=== PATIENT | female | born 1975 | race Native Hawaiian/Other Pacific Islander ===

== ENCOUNTER 2016-05-14 19:18 | Emergency (ER) | payer OTHER ==
[~2016-05-14] VITALS: Ht 153.7 cm; Wt 56.0 kg
[~2016-05-14 19:18] MED LIST: PERI8.6T PO; PREN1CAP7 PO; ROLLER WALKER1 MI1
[2016-05-14 19:21] VITALS: BP 119/75; PULSE 84; RESP 14; TEMP 98.1; O2SAT 99
[2016-05-14] MEDS ORDERED: SODIUM CHLOR 0.9% 1000 ML INJ 1,000 ML IV ONE (19:45)
--- NOTE | 2016-05-14 19:55 | PD ---
HPI Chief Complaint: Related Problem Time Seen by Provider: 19:55 Travel History International Travel<30 days: No Contact w/Intl Traveler<30days: No Traveled to known affect area: No History of Present Illness HPI 40-year-old G2 G1 female presents to the emergency department stating she is 4- 6 weeks . Patient states in the last 24 hours she's developed lower abdominal cramping and vaginal bleeding with passing of a few clots. Patient states she was seen 2 days ago at the [facility] in [facility], but had no issues at that time. Patient states she had a transabdominal ultrasound at that time showing no obvious . Patient denies burning with urination, back pain, fever, chills, or other constitutional symptoms. Patient states she is O+ blood type. She states bleeding comes and goes through the day today. Patient is allergic to Augmentin. PFSH Past Medical History Cancer: No Cardiovascular Problems: No Endocrine: No Genitourinary: No Immune Disorder: No Musculoskeletal: No Neurologic: No Psychiatric: No Reproductive: No Respiratory: No ?: : 1 Para: 1 Social History Alcohol Use: No Tobacco Use: No Substance Use: No Allergies-Medications (Allergen,Severity, Reaction): Coded Allergies: Augmentin (Verified Allergy, Unknown, 05/14/16) Reported Meds & Prescriptions Reported Meds & Active Scripts Active Citranatal [place] ( W/O Vit A W/ Fe Fumar) 27-1-260 Mg Cap 1 Cap PO DAILY Review of Systems Except as stated in HPI: all other systems reviewed are Neg General / Constitutional: No: Fever Eyes: No: Visual changes HENT: No: Headaches Cardiovascular: No: Chest Pain or Discomfort Respiratory: No: Shortness of Breath Gastrointestinal: No: Abdominal Pain Genitourinary: Positive: Hematuria, Pelvic Pain (see history present illness.) , Vaginal Bleeding, No: Urgency, Frequency, Dysuria, Discharge Musculoskeletal: No: Pain Skin: No Rash Neurologic: No: Weakness Psychiatric: No: Depression Endocrine: No: Polydipsia Hematologic/Lymphatic: No: Easy Bruising Physical Exam Narrative GENERAL: Patient appears anxious but in no acute distress. SKIN: Warm and dry. Normal color. Normal turgor. HEAD: Atraumatic. Normocephalic. EYES: Pupils equal and round. No scleral icterus. No injection or drainage. ENT: No nasal bleeding or discharge. Mucous membranes pink and moist. Pharynx is normal. NECK: Trachea midline. Neck is supple. CARDIOVASCULAR: Regular rate and rhythm. No murmurs gallops or rubs. RESPIRATORY: No accessory muscle use. Clear to auscultation. Breath sounds equal bilaterally. GASTROINTESTINAL: Abdomen soft, mild diffuse suprapubic tenderness, nondistended. Hepatic and splenic margins not palpable. No CVA tenderness. MUSCULOSKELETAL: Extremities without clubbing, cyanosis, or edema. No obvious deformities. NEUROLOGICAL: Awake and alert. No obvious cranial nerve deficits. Motor grossly within normal limits. Five out of 5 muscle strength in the arms and legs. Normal speech. PSYCHIATRIC: Appropriate mood and affect; insight and judgment normal. Data Data Last Documented VS Vital Signs Date Time Temp Pulse Resp B/P Pulse Ox O2 Delivery O2 Flow Rate FiO2 05/14/16 21:51 18 05/14/16 19:21 98.1 84 119/75 99 Room Air Orders Complete Blood Count With Diff (05/14/16 19:42) Basic Metabolic Panel (Bmp) (05/14/16 19:42) Beta Hcg (Quant/Titer) (05/14/16 19:42) Ed Urine Pregnancytest Poc (05/14/16 19:42) Ed Poc Ultrasound (05/14/16 ) Type And Screen (05/14/16 19:42) Sodium Chlor 0.9% 1000 Ml Inj (Ns 1000 M (05/14/16 19:45) Us Pelvis (Ques Pr/Ect)W Trans (05/14/16 20:16) Acetamin-Hydrocod 325-5 Mg ([place] 5-325 (05/14/16 20:30) Labs Laboratory Tests Test 05/14/16 20:45 White Blood Count 7.2 TH/MM3 Red Blood Count 4.21 MIL/MM3 Hemoglobin 11.1 GM/DL Hematocrit 34.1 % Mean Corpuscular Volume 80.9 FL Mean Corpuscular Hemoglobin 26.3 PG Mean Corpuscular Hemoglobin 32.5 % Concent Red Cell Distribution Width 16.2 % Platelet Count 175 TH/MM3 Mean Platelet Volume 9.0 FL Neutrophils (%) (Auto) 59.2 % Lymphocytes (%) (Auto) 32.0 % Monocytes (%) (Auto) 6.7 % Eosinophils (%) (Auto) 1.5 % Basophils (%) (Auto) 0.6 % Neutrophils # (Auto) 4.2 TH/MM3 Lymphocytes # (Auto) 2.3 TH/MM3 Monocytes # (Auto) 0.5 TH/MM3 Eosinophils # (Auto) 0.1 TH/MM3 Basophils # (Auto) 0.0 TH/MM3 CBC Comment DIFF FINAL Differential Comment Sodium Level 140 MEQ/L Potassium Level 3.2 MEQ/L Chloride Level 107 MEQ/L Carbon Dioxide Level 27.6 MEQ/L Anion Gap 5 MEQ/L Blood Urea Nitrogen 11 MG/DL Creatinine 0.63 MG/DL Estimat Glomerular Filtration 106 ML/MIN Rate Random Glucose 97 MG/DL Calcium Level 8.0 MG/DL Human Chorionic Gonadotropin, 4422 MIU/ML Quant Blood Type O POSITIVE Antibody Screen NEGATIVE MDM Medical Decision Making Medical Screen Exam Complete: Yes Emergency Medical Condition: Yes Differential Diagnosis Urinary tract infection. Vaginal Spotting in early . Threatened . Narrative Course Patient is medically stable at time of exam. Labs ordered including CBC, BMP, urinalysis, beta hCG, and urine test. Blood type and screen is ordered as well. Normal saline bolus is ordered 1. POC ultrasound is ordered for Dr. Murphy. Patient is discussed with Dr. Murphy. Labs are within normal limits. HCG is 4422. Ultrasound shows intrauterine with questionable viability per radiologist. Patient is discussed with Dr. Murphy. Urinalysis is pending. Patient has threatened . Patient is to return in 48 hours for repeat hCG, or return sooner with worsening symptoms as needed. Diagnosis Primary Impression: with early threatened Patient Instructions: General Instructions Additional Instructions: Labs are within normal limits. HCG is 4422. Ultrasound shows intrauterine with questionable viability per radiologist. Patient has threatened . Patient is to return in 48 hours for repeat hCG, or return sooner with worsening symptoms as needed. Disposition: 01 DISCHARGE HOME Condition: Stable Gorge Rangel May 14, 2016 19:55
[2016-05-14] MEDS ORDERED: ACETAMINOPHEN/HYDROcodone 325 MG/5 MG TAB PO ONE (20:30)
--- NOTE | 2016-05-14 20:31 | PD ---
Physical Exam Date Seen by Provider: May 14, 2016 Time Seen by Provider: 20:26 Narrative 40-year-old female came to the emergency room with history of vaginal bleed. She is about 6 weeks . She is A0. She went to see her SENIOR CAREGIVER 2 days ago where a transabdominal ultrasound was attempted but they were not able to visualize a fetus within the uterus. Yesterday she had blood test done for beta hCG. Patient is unaware of the results of that blood test. Since this morning the cramps and the bleeding has become a little more frequent and increased quantity. She describes the bleeding to be bright colored and more when she is urinating. She was seen by the physician assistant womens volleyball coach and I'm supervising him. I attempted a transabdominal ultrasound. Please refer to my procedure note. I was unable to visualize a fetus within the gestational sac. A transvaginal ultrasound has been ordered. Awaiting for the blood test including beta-hCG level. If the patient is carrying the nutrition will be discharged home to follow up with her OB with a diagnosis of that an . Otherwise it will be treated as a possible ectopic . Awaiting for the ultrasound to be done and resulted. Data Data Last Documented VS Orders Complete Blood Count With Diff (05/14/16 19:42) Basic Metabolic Panel (Bmp) (05/14/16 19:42) Beta Hcg (Quant/Titer) (05/14/16 19:42) Ed Urine Pregnancytest Poc (05/14/16 19:42) Ed Poc Ultrasound (05/14/16 ) Type And Screen (05/14/16 19:42) Sodium Chlor 0.9% 1000 Ml Inj (Ns 1000 M (05/14/16 19:45) Us Pelvis (Ques Pr/Ect)W Trans (05/14/16 20:16) Acetamin-Hydrocod 325-5 Mg ([place] 5-325 (05/14/16 20:30) Urinalysis - C+S If Indicated (05/14/16 23:15) Urine Culture (05/14/16 23:18) Nitrofurantoin Monohyd Macrocr (Macrobid (05/15/16 00:00) Labs MDM Supervised Visit with TREVOR: Yes Procedures Procedure Narrative Emergency Department Pelvic ultrasound was performed with patient consent. The curvilinear probe was used in the transverse and sagittal views within the suprapubic region revealing a gestational sac with no fetus visualized and unable to determine if it was intrauterine . Transvaginal ultrasound has been ordered. Awaiting for that to be done and resulted. Med/Other Pt SpecificInfo: Prescription(s) given Scripts Nitrofurantoin Monohydrate Macrocrystals (Macrobid)100 Mg Hgx857 Mg PO BID 10 Days Ref 0 Prov:Wes Murphy MD 05/14/16 Condition: Stable Wes Murphy MD May 14, 2016 20:31 Red Blood Count 4.21 MIL/MM3 Hemoglobin 11.1 GM/DL Hematocrit 34.1 % Mean Corpuscular Volume 80.9 FL Mean Corpuscular Hemoglobin 26.3 PG Mean Corpuscular Hemoglobin 32.5 % Concent Red Cell Distribution Width 16.2 % Platelet Count 175 TH/MM3 Mean Platelet Volume 9.0 FL Neutrophils (%) (Auto) 59.2 % Lymphocytes (%) (Auto) 32.0 % Monocytes (%) (Auto) 6.7 % Eosinophils (%) (Auto) 1.5 % Basophils (%) (Auto) 0.6 % Neutrophils # (Auto) 4.2 TH/MM3 Lymphocytes # (Auto) 2.3 TH/MM3 Monocytes # (Auto) 0.5 TH/MM3 Eosinophils # (Auto) 0.1 TH/MM3 Basophils # (Auto) 0.0 TH/MM3 CBC Comment DIFF FINAL Differential Comment Sodium Level 140 MEQ/L Potassium Level 3.2 MEQ/L Chloride Level 107 MEQ/L Carbon Dioxide Level 27.6 MEQ/L Anion Gap 5 MEQ/L Blood Urea Nitrogen 11 MG/DL Creatinine 0.63 MG/DL Estimat Glomerular Filtration 106 ML/MIN Rate Random Glucose 97 MG/DL Calcium Level 8.0 MG/DL Human Chorionic Gonadotropin, 4422 MIU/ML Quant Blood Type O POSITIVE Antibody Screen NEGATIVE Urine Color YELLOW Urine Turbidity CLEAR Urine pH 5.5 Urine Specific [place] 1.015 Urine Protein TRACE mg/dL Urine Glucose (UA) NEG mg/dL Urine Ketones 10 mg/dL Urine Occult Blood LARGE Urine Nitrite NEG Urine Bilirubin NEG Urine Urobilinogen LESS THAN 2.0 MG/DL Urine Leukocyte Esterase MOD Urine RBC /hpf Urine WBC 20 /hpf Urine Mucus FEW /lpf Microscopic Urinalysis Comment CULTURE INDICATED MDM Supervised Visit with TREVOR: Yes Procedures Procedure Narrative Emergency Department Pelvic ultrasound was performed with patient consent. The curvilinear probe was used in the transverse and sagittal views within the suprapubic region revealing a gestational sac with no fetus visualized and unable to determine if it was intrauterine . Cramps vaginal ultrasound has been ordered. Awaiting for that to be done and resulted. Med/Other Pt SpecificInfo: Prescription(s) given Scripts Nitrofurantoin Monohydrate Macrocrystals (Macrobid)100 Mg Yly547 Mg PO BID 10 Days Ref 0 Prov:Wes Murphy MD 05/14/16 Condition: Stable Wes Murphy MD May 14, 2016 20:31
[2016-05-14 21:56] LABS: AUTOMATED NEUTROPHIL # 4.2 TH/MM3 (1.8-7.7); BASOPHIL % 0.6 % (0.0-2.0); EOSINOPHIL # 0.1 TH/MM3 (0-0.4); EOSINOPHIL % 1.5 % (0.0-4.0); HEMATOCRIT 34.1 % (35.0-46.0); HEMO FLAGS DIFF FINAL; LYMPHOCYTE # 2.3 TH/MM3 (1.0-4.8); MEAN CELL VOLUME 80.9 FL (80.0-100.0); MEAN CORPUSCULAR HEMOGLOBIN 26.3 PG (27.0-34.0); MEAN CORPUSCULAR HGB CONC 32.5 % (32.0-36.0); MONO % 6.7 % (0.0-8.0); NEUT % 59.2 % (16.0-70.0); PLATELET COUNT 175 TH/MM3 (150-450); RED BLOOD COUNT 4.21 MIL/MM3 (4.00-5.30); RED CELL DISTRIBUTION WIDTH 16.2 % (11.6-17.2); WHITE BLOOD COUNT 7.2 TH/MM3 (4.0-11.0)
[2016-05-14 22:20] LABS: BICARBONATE 27.6 MEQ/L (21.0-32.0); POTASSIUM 3.2 MEQ/L (3.5-5.1)
--- NOTE | 2016-05-14 23:00 | RADRPT ---
EXAM DATE/TIME: 05/14/2016 21:24 [facility] COMPARISON: No previous studies available for comparison. INDICATIONS : Vaginal bleeding with . LAB(S): Beta-hC MEDICAL HISTORY : . Pelvic pain. Vaginal bleeding with . SURGICAL HISTORY : Right knee surgery. ENCOUNTER: Initial ACUITY: 1 day PAIN SCORE: 5/10 LOCATION: Bilateral pelvis MEASUREMENTS: UTERUS: 9.3 x 6.4 x 5.6 cm ENDOMETRIAL STRIPE: >20 mm RIGHT OVARY: 2.7 x 2.3 x 1.2 cm LEFT OVARY: 2.6 x 2.2 x 1.4 cm FREE FLUID: No CROWN RUMP LENGTH: 0.5 cm = 6 WKS 1 DAYS FHR: Non visualized. BPM FINDINGS: There is an intrauterine with gestational sac measurements characteristic of a gestational age of 6 weeks and one day. Yolk sac is present. There is a pole with measurements also charact eristic of a gestational age of 6 weeks and one day. However, no heart rate identified. There are 2 complex areas within the uterus measuring up to 1.7 x 1.1 cm and 1.1 x 0.8 cm most charac teristic of subchorionic hemorrhages. Suspected microcalcifications present in the right ovary. Exophytic cyst left ovary measuring up to 1 .7 x 1.5 cm. CONCLUSION: 1. Intrauterine present with gestational sac and crown-rump length measurements characteris tic of a six-week one-day . However, viability cannot be confirmed as no heart rate ca n be detected. 2. Subchorionic hemorrhages in the uterus measuring up to 1.7 cm and 1.1 cm in maximal diameter. 3. Mildly complex exophytic 1.7 cm left ovarian cyst. Terrell Arce MD on May 14, 2016 at 22:53 Board Certified Radiologist. This report was verified electronically.
[2016-05-14 23:37] VITALS: BP 117/68; PULSE 68; RESP 18; O2SAT 97
[2016-05-14 23:38] LABS: BLOOD, URINE LARGE (NEG); COMMENT (UR) CULTURE INDICATED; CULTURE IF INDICATED CULTURE INDICATED; GLUCOSE,URINE NEG (NEG); KETONE, URINE 10 mg/dL (NEG); MUCUS URINE FEW /lpf (OCC); NITRITE,URINE NEG (NEG); PH, URINE 5.5 (5.0-8.5); URINE COLOR YELLOW (YELLW/STRAW)
[2016-05-14] MEDS ORDERED: MACR100C2 PO (23:55)
[2016-05-15] MEDS ORDERED: NITROFURANTOIN MONOHYD MACROCR 100 MG CAP PO ONE
== END 2016-05-15 00:47 | disposition home or self-care (01) ==
LOC: NEPE 19:18
DX: O20.0 Threatened abortion (principal); N93.9 Abnormal uterine and vaginal bleeding, unspecified; R10.9 Unspecified abdominal pain; Z3A.01 Less than 8 weeks gestation of pregnancy
CPT/HCPCS: 76700; 76817; 80048; 81001; 84702; 84703; 85025; 86850; 86900; 86901; 87086; 96360; 99284; J7030

== ENCOUNTER 2016-05-15 00:44 | Emergency (ER) | payer OTHER ==
[~2016-05-15 00:44] MED LIST changes: +MACR100C2 PO; -PERI8.6T PO; -ROLLER WALKER1 MI1
[2016-05-15 00:47] VITALS: BP 113/67; PULSE 83; RESP 14; TEMP 98.1; O2SAT 97
[2016-05-15] MEDS ORDERED: SODIUM CHLOR 0.9% 1000 ML INJ 1,000 ML IV ONE (01:15)
[2016-05-15 01:53] LABS: AUTOMATED NEUTROPHIL # 3.9 TH/MM3 (1.8-7.7); BASOPHIL % 0.6 % (0.0-2.0); EOSINOPHIL # 0.1 TH/MM3 (0-0.4); EOSINOPHIL % 1.4 % (0.0-4.0); HEMATOCRIT 35.7 % (35.0-46.0); HEMO FLAGS DIFF FINAL; LYMPH % 37.8 % (9.0-44.0); LYMPHOCYTE # 2.7 TH/MM3 (1.0-4.8); MEAN CELL VOLUME 80.1 FL (80.0-100.0); MEAN CORPUSCULAR HEMOGLOBIN 26.1 PG (27.0-34.0); MEAN CORPUSCULAR HGB CONC 32.6 % (32.0-36.0); MONO % 5.8 % (0.0-8.0); NEUT % 54.4 % (16.0-70.0); PLATELET COUNT 191 TH/MM3 (150-450); RED BLOOD COUNT 4.46 MIL/MM3 (4.00-5.30); RED CELL DISTRIBUTION WIDTH 16.2 % (11.6-17.2); WHITE BLOOD COUNT 7.2 TH/MM3 (4.0-11.0)
--- NOTE | 2016-05-15 02:34 | PD ---
HPI Chief Complaint: Related Problem Time Seen by Provider: 01:14 Travel History International Travel<30 days: No Contact w/Intl Traveler<30days: No Traveled to known affect area: No History of Present Illness HPI 40-year-old female came to the emergency room for vaginal bleeding. Patient was seen and discharged from the ER less than 1 hour ago. She was seen by the PA and I will supervising him at that time. Patient was about 6 weeks and had been bleeding/spotting for past 2-3 days. She was evaluated and determined to be having a threatened . She also had UTI and the prescription was given for that. She was given a dose of Macrobid before she left. However patient says that as soon as she left she started feeling that something was coming out her vagina. And she started to bleed more. She checked back at triage and was very upset that she was discharged home. I tried to talk to her at that point and explained to her that she was threatened in first trimester and there was no aggressive measures taken to stop the miscarriage if it had happened. She complained that she is dizzy and that the second visit could've been avoided. I asked the charge nurse to go and talk to them and address the concern since at this point it didn't seem like I was able to explain to the patient and make her understand reasonably about the management for in first trimester. Patient's vital signs were stable. She appeared anxious, upset and little pale. PFSH Past Medical History Narrative Medical List of her past medical, surgical, social and family history was reviewed from the nursing note. Cancer: No Cardiovascular Problems: No Endocrine: No Gastrointestinal Disorders: No Genitourinary: No Immune Disorder: No Implanted Vascular Access Dvce: No Musculoskeletal: No Neurologic: No Psychiatric: No Reproductive: No Respiratory: No Immunizations Current: Yes Tetanus Vaccination: Unknown Influenza Vaccination: Yes ?: : 2 Para: 1 Past Surgical History Surgical History: No Previous Surgery Other Surgery: No Social History Alcohol Use: No Tobacco Use: No Substance Use: No Allergies-Medications (Allergen,Severity, Reaction): Coded Allergies: Augmentin (Verified Allergy, Unknown, 05/14/16) Comments List of her allergies reviewed from the nursing note. Reported Meds & Prescriptions Reported Meds & Active Scripts Active Macrobid (Nitrofurantoin Monoh/Nitrofur Macro) 100 Mg Cap 100 Mg PO BID 10 Days Citranatal [place] ( W/O Vit A W/ Fe Fumar) 27-1-260 Mg Cap 1 Cap PO DAILY Narrative Medication List of medications reviewed from the nursing note. Review of Systems Except as stated in HPI: all other systems reviewed are Neg Physical Exam Narrative GENERAL: Awake, alert, anxious, moderate distress SKIN: Warm and dry. HEAD: Atraumatic. Normocephalic. EYES: Pupils equal and round. No scleral icterus. No injection or drainage. ENT: No nasal bleeding or discharge. Mucous membranes pink and moist. NECK: Trachea midline. No JVD. CARDIOVASCULAR: Regular rate and rhythm. No murmur appreciated. RESPIRATORY: No accessory muscle use. Clear to auscultation. Breath sounds equal bilaterally. GASTROINTESTINAL: Abdomen soft, non-tender, nondistended. Hepatic and splenic margins not palpable. MUSCULOSKELETAL: No obvious deformities. No clubbing. No cyanosis. No edema. NEUROLOGICAL: Awake and alert. No obvious cranial nerve deficits. Motor grossly within normal limits. Normal speech. PSYCHIATRIC: Appropriate mood and affect; insight and judgment normal. Data Data Last Documented VS Orders Complete Blood Count With Diff (05/15/16 01:14) Sodium Chlor 0.9% 1000 Ml Inj (Ns 1000 M (05/15/16 01:15) Labs Laboratory Tests Test 05/15/16 01:36 White Blood Count 7.2 TH/MM3 Red Blood Count 4.46 MIL/MM3 Hemoglobin 11.6 GM/DL Hematocrit 35.7 % Mean Corpuscular Volume 80.1 FL Mean Corpuscular Hemoglobin 26.1 PG Mean Corpuscular Hemoglobin 32.6 % Concent Red Cell Distribution Width 16.2 % Platelet Count 191 TH/MM3 Mean Platelet Volume 8.7 FL Neutrophils (%) (Auto) 54.4 % Lymphocytes (%) (Auto) 37.8 % Monocytes (%) (Auto) 5.8 % Eosinophils (%) (Auto) 1.4 % Basophils (%) (Auto) 0.6 % Neutrophils # (Auto) 3.9 TH/MM3 Lymphocytes # (Auto) 2.7 TH/MM3 Monocytes # (Auto) 0.4 TH/MM3 Eosinophils # (Auto) 0.1 TH/MM3 Basophils # (Auto) 0.0 TH/MM3 CBC Comment DIFF FINAL Differential Comment MDM Medical Decision Making Medical Screen Exam Complete: Yes Emergency Medical Condition: Yes Medical Record Reviewed: Yes Differential Diagnosis Inevitable Narrative Course 2:30 AM patient received IV fluid bolus. Repeat CBC was within normal limits and stable. She had gone to the bathroom to urinate and passed the products of conception. This was collected by our nurse and put in formalin container and sent for histopathology. I explained to the patient and her at length regarding the post miscarriage expectation and course. I tried to answer all the questions to the best of my ability. I truly sympathized with her loss. The next product of conception/fetus has been sent for pathology. Patient was informed that once the pathology report is back they will call her to let her know. I will discharge her home at this point. She needs to follow up with her CIGAR MAKING SUPERVISOR. Procedures EKG Prior to Arrival: No Diagnosis Primary Impression: Inevitable complete miscarriage without complication Referrals: Primary Care Physician Additional Instructions: Please follow-up with your CIGAR MAKING SUPERVISOR on Tuesday. Please return to the ER if the symptoms worsen or any other new concerns. Take the antibiotic prescription that was given to you in your earlier visit for UTI. Drink lots of fluid, no tampons, intercourse or vaginal douching. Do not lift anything heavy or any heavy exertional work. Med/Other Pt SpecificInfo: No Change to Meds Disposition: DISCHARGE HOME Condition: Wes Randolph MD May 15, 2016 02:34 tampons, intercourse or vaginal douching. Do not lift anything heavy or any heavy exertional work. Med/Other Pt SpecificInfo: No Change to Meds Disposition: DISCHARGE HOME Condition: Wes Randolph MD May 15, 2016 02:34
[2016-05-15 02:49] VITALS: BP 110/64
== END 2016-05-15 02:50 | disposition home or self-care (01) ==
LOC: NEPE 00:44
DX: O03.9 Complete or unspecified spontaneous abortion without complication (principal)
CPT/HCPCS: 85025; 88305; 99283; J7030